=== PATIENT | male | born 1995 | race Caucasian/White ===

== ENCOUNTER 2017-06-21 19:54 | Emergency (ER) | payer SELFPAY ==
[2017-06-21 21:14] VITALS: BP 124/68
== END 2017-06-21 21:14 | disposition home or self-care (01) ==
LOC: ED 19:54
DX: S93.402A Sprain of unspecified ligament of left ankle, initial encounter (principal); Z88.1 Allergy status to other antibiotic agents; Y93.67 Activity, basketball; Y92.89 Other specified places as the place of occurrence of the external cause; Y99.8 Other external cause status

== ENCOUNTER 2017-12-28 22:07 | Emergency (ER) | payer OTHER ==
[~2017-12-28] VITALS: Ht 154.9 cm; Wt 81.2 kg
[2017-12-28 22:13] VITALS: Ht 154.9 cm; Wt 81.2 kg
[2017-12-29] VITALS: BP 128/76
== END 2017-12-29 | disposition home or self-care (01) ==
LOC: ED 22:07
DX: S01.81XA Laceration without foreign body of other part of head, initial encounter (principal); R03.0 Elevated blood-pressure reading, without diagnosis of hypertension; Z88.1 Allergy status to other antibiotic agents; W51.XXXA Accidental striking against or bumped into by another person, initial encounter; Y93.67 Activity, basketball; Y92.89 Other specified places as the place of occurrence of the external cause; Y99.8 Other external cause status
CPT/HCPCS: J2001